=== PATIENT | female | born 1955 | race Caucasian/White ===

== ENCOUNTER 2021-12-18 00:37 | Inpatient (IN) ==
--- NOTE | 2021-12-18 01:01 | Emergency Department Note ---
History of Present Illness General Chief complaint: Shortness of Breath/Dyspnea Stated complaint: sOB Time Seen by Provider: 12/18/21 00:49 History of Present Illness 66-year-old female presents emergency department with a 1-1/2-week history of shortness of breath some dyspnea on exertion. Patient denies cough cold congestion. Patient denies fever. Patient is a very poor historian as to her shortness of breath. Patient denies any substernal chest pain patient states leg swelling that has not worsened. Patient denies calf pain. Patient was seen at a clinic this evening reportedly had a pulse ox of 91% and had a bio fire test that was negative for all viral infections Home Medications Medication Instructions Recorded Confirmed Type CHOLECALCIFEROL (VITAMIN D3) 1 cap PO DAILY 30 Days #30 cap 10/26/15 Rx Cyanocobalamin 1,000 mcg IM UD #1 10/26/15 Rx ERGOCALCIFEROL (VITAMIN D 26529 1 cap PO WK 28 Days #4 cap 02/15/16 History UNIT) ENOXAPARIN (LOVENOX) 129 mg SUBCUT BID@06,18 4 Days #8 02/17/16 Rx vial Warfarin Sod (Coumadin) 10 mg PO DAILY@16 7 Days #14 tab 02/17/16 Rx Allergies Allergy/AdvReac Type Severity Reaction Status Date / Time No Known Allergies Allergy Unverified 10/21/15 08:39 Past Med/Surg History Social History Smoking Status: Never smoker Feels Safe at Home: Yes Review of Systems A total of 10 systems reviewed and were otherwise negative Ear, Nose, Mouth, Throat: no ear pain Respiratory: + dyspnea Cardiovascular: no chest pain Physical Exam Vital Signs Vital Signs - 24 hr 12/18/21 00:43 12/18/21 01:34 12/18/21 01:40 Temperature 36.7 C Temperature Source Temporal Artery Scan Pulse Rate 79 Respiratory Rate 22 Blood Pressure 145/82 H Blood Pressure Mean 103 Pulse Oximetry 91 Oxygen Delivery Method Room Air Room Air Nasal Cannula Oxygen Flow Rate 2 Sepsis Recent Fever Within 48 Hours Yes Sepsis New/Unexplained Change in Mental Status No Sepsis Action Taken by Nursing No Action Required 12/18/21 01:42 Temperature Temperature Source Pulse Rate Respiratory Rate Blood Pressure Blood Pressure Mean Pulse Oximetry 92 Oxygen Delivery Method Nasal Cannula Oxygen Flow Rate 2 Sepsis Recent Fever Within 48 Hours Sepsis New/Unexplained Change in Mental Status Sepsis Action Taken by Nursing VITAL SIGNS - Vital signs and nursing notes were reviewed. GENERAL - no acute distress. Communicates well with provider and answers questions appropriately. SKIN - Without rashes. HEAD - NC/AT. EYES - PERRL with EOMI bilaterally. Sclera anicteric. Palpebral conjunctiva pink and moist with no injection noted. EARS - No deformities of external structures noted on gross examination bilaterally. NOSE - Midline and without cyanosis. No epistaxis or purulent drainage noted. Septum midline without deviation or septal hematoma noted. MOUTH/OROPHARYNX - Without perioral cyanosis. Buccal mucosa pink and moist NECK - Neck with FROM. Supple to palpation. LUNGS - Chest wall symmetric without accessory muscle use, intercostals retractions, or central cyanosis. Normal vesicular breath sounds CTA B/L. No wheezes, rales, or rhonchi appreciated. CARDIAC - RRR with S1/S2. No murmur, rubs, or gallops appreciated. ABDOMEN - Abdominal contour soft without pulsations or visible masses. BS normoactive all four quadrants. No tenderness, palpable masses, hepatosplenomegaly, or ascites noted. EXTREMITIES - No clubbing or peripheral cyanosis. Bilateral lower extremity edema nontender calves; NEUROLOGIC - Cranial nerves II through XII grossly intact. PSYCH - A&Ox3 and cooperates fully with examiner. Pt is very pleasant and int eracts well with examiner. Course Reevaluation(s) Reevaluation #1: Patient is resting in no distress was started on 2 L of oxygen she is not in any respiratory distress at this time. Patient was started on IV Rocephin and Zithromax for suspected right lower lobe pneumonia. Patient is COVID-negative. The case was discussed with the [facility] hospitalist for admission Time: 03:12 Administered Medications Azithromycin 500 mg/ Dextrose 255 mls @ 125 mls/hr IV ONE ONE Stop: 12/18/21 04:11 Last Admin: 12/18/21 03:00 Dose: 125 mls/hr Documented by: [id number] Discontinued Medications Fentanyl Citrate (Fentanyl Citrate 100 Mcg/2 Ml Vial) 25 mcg IV NOW STA Stop: 12/18/21 02:08 Last Admin: 12/18/21 02:21 Dose: 25 mcg Documented by: [id number] Ceftriaxone Sodium (Rocephin) 1,000 mg in 50 mls @ 100 mls/hr IV NOW STA Stop: 12/18/21 02:38 Last Infusion: 12/18/21 03:00 Dose: 0 mls/hr Documented by: [id number] Admin: 12/18/21 02:41 Dose: 100 mls/hr Documented by: [id number] Medical Decision Making Medical Records Attestation: I reviewed the patient's medical records. Home Medications Current Medication List: was personally reviewed by me Laboratory Data Attestation: I reviewed the patient's lab results. Result diagrams: 12/18/21 01:45 12/18/21 01:45 Lab Results 12/18/21 12/18/21 12/18/21 Range/Units 01:45 01:45 01:45 WBC 4.99 (4.8-10.8) K/uL RBC 4.46 (4.2-5.4) M/uL Hgb 13.7 (12.0-16.0) g/dL Hct 40.1 (37-47) % MCV 89.9 (80-100) fL MCH 30.7 (25-34) pg MCHC 34.2 (32-36) g/dL RDW Std Deviation 43.5 (36.4-46.3) fL RDW Coeff of Major 13.1 (11.5-14.5) % Plt Count 60 L (130-400) K/uL MPV 13.1 H (7.4-10.4) fL Immature Gran % (Auto) 0.0 % Neut % (Auto) 80.8 % Lymph % (Auto) 12.2 % [place] % (Auto) 6.4 % Eos % (Auto) 0.4 % Baso % (Auto) 0.2 % Neut # (Auto) 4.03 (1.4-6.5) K/uL Lymph # (Auto) 0.61 L (1.2-3.4) K/uL [place] # (Auto) 0.32 (0.11-0.59) K/uL Eos # (Auto) 0.02 (0-0.5) K/uL Baso # (Auto) 0.01 (0-0.2) K/uL Immature Gran # (Auto) 0.00 (0.00-0.02) K/uL Platelet Estimate Decreased L (Normal) Giant Platelets 1+ PT 12.7 H (9.0-12.0) Seconds INR 1.2 H (0.9-1.1) APTT 31.4 H (21.0-31.0) Seconds PTT Ratio 1.1 Sodium (136-145) mmol/L Potassium Chloride (98-107) mmol/L Carbon Dioxide (21-32) mmol/L Anion Gap (3-11) BUN (6-23) mg/dl Creatinine (0.6-1.2) mg/dl Est Cr Clr Drug Dosing Est GFR ( Amer) ml/min Est GFR (Non-Af Amer) ml/min BUN/Creatinine Ratio (10-20) Glucose (70-99(Fasting)) mg/dl Calcium (8.5-10.1) mg/dl Magnesium (1.7-2.4) mg/dl Total Bilirubin (0.2-1.0) mg/dl AST ALT (7-52) U/L Alkaline Phosphatase (34-104) U/L Troponin I High Sens 14.5 H (0-14) pg/ml B-Natriuretic Peptide (0-100) pg/ml Total Protein (6.0-8.3) gm/dl Albumin (3.4-5.0) gm/dl Globulin (2.5-4.0) gm/dl Albumin/Globulin Ratio (0.9-2) SARS-CoV-2, RNA, NAAT (NEGATIVE) 12/18/21 12/18/21 12/18/21 Range/Units 01:45 01:45 02:42 WBC (4.8-10.8) K/uL RBC (4.2-5.4) M/uL Hgb (12.0-16.0) g/dL Hct (37-47) % MCV (80-100) fL MCH (25-34) pg MCHC (32-36) g/dL RDW Std Deviation (36.4-46.3) fL RDW Coeff of Major (11.5-14.5) % Plt Count (130-400) K/uL MPV (7.4-10.4) fL Immature Gran % (Auto) % Neut % (Auto) % Lymph % (Auto) % [place] % (Auto) % Eos % (Auto) % Baso % (Auto) % Neut # (Auto) (1.4-6.5) K/uL Lymph # (Auto) (1.2-3.4) K/uL [place] # (Auto) (0.11-0.59) K/uL Eos # (Auto) (0-0.5) K/uL Baso # (Auto) (0-0.2) K/uL Immature Gran # (Auto) (0.00-0.02) K/uL Platelet Estimate (Normal) Giant Platelets PT (9.0-12.0) Seconds INR (0.9-1.1) APTT (21.0-31.0) Seconds PTT Ratio Sodium 128 L (136-145) mmol/L Potassium TNP Chloride 93 L (98-107) mmol/L Carbon Dioxide 27 (21-32) mmol/L Anion Gap 8 (3-11) BUN 10 (6-23) mg/dl Creatinine 0.76 (0.6-1.2) mg/dl Est Cr Clr Drug Dosing Not Reportable Est GFR ( Amer) 93.4 ml/min Est GFR (Non-Af Amer) 80.6 ml/min BUN/Creatinine Ratio 13.2 (10-20) Glucose 136 H (70-99(Fasting)) mg/dl Calcium 8.4 L (8.5-10.1) mg/dl Magnesium 1.8 (1.7-2.4) mg/dl Total Bilirubin 0.7 (0.2-1.0) mg/dl AST TNP ALT 56 H (7-52) U/L Alkaline Phosphatase 65 (34-104) U/L Troponin I High Sens (0-14) pg/ml B-Natriuretic Peptide 147 H (0-100) pg/ml Total Protein 6.8 (6.0-8.3) gm/dl Albumin 3.6 (3.4-5.0) gm/dl Globulin 3.2 (2.5-4.0) gm/dl Albumin/Globulin Ratio 1.1 (0.9-2) SARS-CoV-2, RNA, NAAT NEGATIVE (NEGATIVE) Imaging Data Attestation: I personally reviewed and interpreted this imaging study as follows: My Impression: Chest x-ray interpreted by me as right lower lobe infiltrate is present ECG Data Attestation: I personally reviewed and interpreted this ECG as follows: Additional Comments: EKG interpreted by me atrial fibrillation rate of 78, no obvious ST segment elevation or depression, normal axis MDM Narrative Medical decision making differential diagnosis pneumonia, upper respiratory tract infection, CHF, anemia, cardiac event. Plan is to check labs chest x-ray Impression & Plan Hypoxia, Pneumonia Discharge Plan Visit Data Chief Complaint: Shortness of Breath/Dyspnea Stated Complaint: sOB ED Provider: Noel Hoang Discharge Problem: Hypoxia, Pneumonia Patient Disposition: Being Evaluated by Hospitalist Forms Stand Alone Forms: My [facility] Prescriptions Prescriptions: No Action CHOLECALCIFEROL (VITAMIN D3) 2,000 UNIT capsule 1 cap PO DAILY 30 Days Qty: 30 RF: 3 Cyanocobalamin 1,000 MCG/ML INJECTION 1,000 mcg IM UD Qty: 1 RF: 0 ERGOCALCIFEROL (VITAMIN D 42262 UNIT) 50,000 UNIT capsule 1 cap PO WK 28 Days Qty: 4 RF: 5 ENOXAPARIN (LOVENOX) 150 MG/1 ML INJECTION 129 mg subcut BID@06,18 4 Days Qty: 8 RF: 0 Warfarin Sod (Coumadin) 10 MG tablet 10 mg PO DAILY@16 7 Days Qty: 14 RF: 0 Referrals Referrals: Lan Wheeler MD [Primary Care Provider] -
[2021-12-18] MEDS ORDERED: fentaNYL citrate 100 MCG/2 ML VIAL IV STA (02:07)
[2021-12-18] MEDS ORDERED: AZITHROMYCIN 500 MG in DEXTROSE 5% 250 ML IV ONE (02:09)
[2021-12-18] MEDS ORDERED: cefTRIAXone SODIUM 1,000 MG/50 ML BAG IV STA (02:09)
[2021-12-18 02:16] LABS: INR 1.2 (0.9-1.1); Partial Thromboplastin Ratio 1.1; Partial Thromboplastin Time 31.4 Seconds (21.0-31.0); Prothrombin Time 12.7 Seconds (9.0-12.0)
[2021-12-18 02:36] LABS: Alanine Aminotransferase 56 U/L (7-52); Albumin Globulin Ratio 1.1 (0.9-2); Albumin Level 3.6 gm/dl (3.4-5.0); Alkaline Phosphatase 65 U/L (34-104); Anion Gap 8 (3-11); BUN Creatinine Ratio 13.2 (10-20); Bilirubin,Total 0.7 mg/dl (0.2-1.0); Blood Urea Nitrogen 10 mg/dl (6-23); Calcium 8.4 mg/dl (8.5-10.1); Carbon Dioxide 27 mmol/L (21-32); Chloride 93 mmol/L (98-107); Est GFR (African American) 93.4 ml/min; Est GFR (Non-African American) 80.6 ml/min; Globulin 3.2 gm/dl (2.5-4.0); Glucose 136 mg/dl (70-99(Fasting)); Magnesium 1.8 mg/dl (1.7-2.4); Sodium 128 mmol/L (136-145); Total Protein 6.8 gm/dl (6.0-8.3)
[2021-12-18 02:44] LABS: Basophils # (auto) 0.01 K/uL (0-0.2); Basophils % (auto) 0.2 %; Eosinophils # (auto) 0.02 K/uL (0-0.5); Eosinophils % (auto) 0.4 %; Giant Platelets 1+; Hematocrit (blood only) 40.1 % (37-47); Hemoglobin 13.7 g/dL (12.0-16.0); Lymphocytes # (auto) 0.61 K/uL (1.2-3.4); Lymphocytes % (auto) 12.2 %; Mean Corpuscular Hemoglobin 30.7 pg (25-34); Mean Corpuscular Hgb Conc 34.2 g/dL (32-36); Mean Corpuscular Volume 89.9 fL (80-100); Mean Platelet Volume 13.1 fL (7.4-10.4); Monocytes # (auto) 0.32 K/uL (0.11-0.59); Monocytes % (auto) 6.4 %; Neutrophils # (auto) 4.03 K/uL (1.4-6.5); Neutrophils % (auto) 80.8 %; Platelet Count 60 K/uL (130-400); Platelet Estimate Decreased (Normal); RDW Coefficient of Variation 13.1 % (11.5-14.5); RDW Standard Deviation 43.5 fL (36.4-46.3); Red Blood Count 4.46 M/uL (4.2-5.4); White Blood Count 4.99 K/uL (4.8-10.8)
--- NOTE | 2021-12-18 03:23 | History & Physical Report ---
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 RLL Pneumonia; Hypoxia Weakness x several weeks with cough/SOB, RLL crackles on exam, and RLL Pneumonia per CXR. No sepsis. - ordered lactate, Procal, CRP, MRSA nares - ordered urine legionella, given comorbid diarrhea - started on CTX 1g IV and Azithromycin 500mg IV in the ED - will continue both, daily - follow blood cx and adjust abx if necessary - supplemental O2 via NC as necessary to maintain SpO2 90% - wean as tolerated - Mucinex 1200mg PO BID - trend CBC tomorrow AM Atrial Fibrillation New diagnosis, no RVR. CHADS-VASc score of 2. CHADS-VASc score of 4 (previous VTE). - admit to med/tele and repeat EKG later this AM - discussed anti-coagulation and chronic beta-blockade with the patient - will defer to day team for further discussions as the patient would like to think about it more Hyponatremia Na 128. Suspect hypotonic hypovolemic hyponatremia due to diarrhea as well as decreased fluid intake. - ordered urine/serum osmolality and urinary sodium - will give 1L NSS bolus now and re-check BMP at 06:30 Thrombocytopenia Plts 60. Unclear etiology at this time. No s/s active bleeding. - will get hepatitis panel (given slightly elevated ALT) as well as peripheral smear - trend tomorrow AM H/o VTE/PE In 2015. Was on anti-coagulation but stopped (reportedly per PCP) several years ago. 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 Patient has had [id number] PO intake for several days. Also patient reports watery diarrhea (non-bloody), 2-3 episodes per day, for the last several weeks. Patient was reportedly seen in a clinic yesterday and had SpO2 of 91% and had tested nevarez- negative for viral infections via Bio Fire testing. Patient denies fever/chills, chest pain, N/V, abdominal pain In the ED the patient was hypoxic to high 80s and required 2L/min via NC to maintain SpO2 92%. Labs significant for plts 60 (no previous) and lymphopenia 0.61. Na 128, Cl 93. AST 56. hsTroponin negative. BNP 147. PT 12.7/INR 12.7. COVID-19 negative. CXR showing RLL opacity suggestive of pneumonia. In the ED patient was given CTX 1g IV and Azithromycin 500mg IV. Was also given Fentanyl 25mcg IV x1. Blood cx were drawn before abx administered. Allergies Allergy/AdvReac Type Severity Reaction Status Date / Time No Known Allergies Allergy Unverified 10/21/15 08:39 Home Medications Medication Instructions Recorded Confirmed Type CHOLECALCIFEROL (VITAMIN D3) 1 cap PO DAILY 30 Days #30 cap 10/26/15 Rx Cyanocobalamin 1,000 mcg IM UD #1 10/26/15 Rx ERGOCALCIFEROL (VITAMIN D 05124 1 cap PO WK 28 Days #4 cap 02/15/16 History UNIT) ENOXAPARIN (LOVENOX) 129 mg SUBCUT BID@06,18 4 Days #8 02/17/16 Rx vial Warfarin Sod (Coumadin) 10 mg PO DAILY@16 7 Days #14 tab 02/17/16 Rx Past Med/Surg History Medical History (Updated 12/18/21 @ 03:58 by Alton Davis MD) History of pulmonary embolism Social History Smoking Status: Never smoker Feels Safe at Home: Yes Review of Systems Review of Systems: All systems reviewed & are unremarkable except as noted in HPI & below Physical Exam Physical Exam: General: A&Ox3. NAD. Cooperative. HEENT: Atraumatic, normocephalic. Pulm: Right mid- and basilar crackles. Symmetrical chest rise. No increase work of breathing. No respiratory distress. Cardiac: irregularly irregular rhythm, regular rate, -mrg. Radial pulses intact and symmetrical. No LE edema. Abdominal: soft, non-tender, non-distended, BS x 4 Skin: warm, dry, no rash Results & Data Results & Data ([facility]) Vital Signs (Past 12 Hours) Vital Signs Temp Pulse Resp BP Pulse Ox 12/18/21 01:42 92 12/18/21 00:43 36.7 C 79 22 145/82 H 91 Laboratory Results Laboratory Results WBC 4.99 K/uL (4.8-10.8) 12/18/21 01:45 RBC 4.46 M/uL (4.2-5.4) 12/18/21 01:45 Hgb 13.7 g/dL (12.0-16.0) 12/18/21 01:45 Hct 40.1 % (37-47) 12/18/21 01:45 MCV 89.9 fL (80-100) 12/18/21 01:45 MCH 30.7 pg (25-34) 12/18/21 01:45 MCHC 34.2 g/dL (32-36) 12/18/21 01:45 RDW Std Deviation 43.5 fL (36.4-46.3) 12/18/21 01:45 RDW Coeff of Major 13.1 % (11.5-14.5) 12/18/21 01:45 Plt Count 60 K/uL (130-400) L 12/18/21 01:45 MPV 13.1 fL (7.4-10.4) H 12/18/21 01:45 Immature Gran % (Auto) 0.0 % 12/18/21 01:45 Neut % (Auto) 80.8 % 12/18/21 01:45 Lymph % (Auto) 12.2 % 12/18/21 01:45 [place] % (Auto) 6.4 % 12/18/21 01:45 Eos % (Auto) 0.4 % 12/18/21 01:45 Baso % (Auto) 0.2 % 12/18/21 01:45 Neut # (Auto) 4.03 K/uL (1.4-6.5) 12/18/21 01:45 Lymph # (Auto) 0.61 K/uL (1.2-3.4) L 12/18/21 01:45 [place] # (Auto) 0.32 K/uL (0.11-0.59) 12/18/21 01:45 Eos # (Auto) 0.02 K/uL (0-0.5) 12/18/21 01:45 Baso # (Auto) 0.01 K/uL (0-0.2) 12/18/21 01:45 Immature Gran # (Auto) 0.00 K/uL (0.00-0.02) 12/18/21 01:45 Platelet Estimate Decreased (Normal) L 12/18/21 01:45 Giant Platelets 1+ 12/18/21 01:45 PT 12.7 Seconds (9.0-12.0) H 12/18/21 01:45 INR 1.2 (0.9-1.1) H 12/18/21 01:45 APTT 31.4 Seconds (21.0-31.0) H 12/18/21 01:45 PTT Ratio 1.1 12/18/21 01:45 Sodium 128 mmol/L (136-145) L 12/18/21 01:45 Potassium TNP 12/18/21 01:45 Chloride 93 mmol/L (98-107) L 12/18/21 01:45 Carbon Dioxide 27 mmol/L (21-32) 12/18/21 01:45 Anion Gap 8 (3-11) 12/18/21 01:45 BUN 10 mg/dl (6-23) 12/18/21 01:45 Creatinine 0.76 mg/dl (0.6-1.2) 12/18/21 01:45 Est Cr Clr Drug Dosing Not Reportable 12/18/21 01:45 Est GFR ( Amer) 93.4 ml/min 12/18/21 01:45 Est GFR (Non-Af Amer) 80.6 ml/min 12/18/21 01:45 BUN/Creatinine Ratio 13.2 (10-20) 12/18/21 01:45 Glucose 136 mg/dl (70-99(Fasting)) H 12/18/21 01:45 Calcium 8.4 mg/dl (8.5-10.1) L 12/18/21 01:45 Magnesium 1.8 mg/dl (1.7-2.4) 12/18/21 01:45 Total Bilirubin 0.7 mg/dl (0.2-1.0) 12/18/21 01:45 AST TNP 12/18/21 01:45 ALT 56 U/L (7-52) H 12/18/21 01:45 Alkaline Phosphatase 65 U/L (34-104) 12/18/21 01:45 Troponin I High Sens 14.5 pg/ml (0-14) H 12/18/21 01:45 B-Natriuretic Peptide 147 pg/ml (0-100) H 12/18/21 01:45 Total Protein 6.8 gm/dl (6.0-8.3) 12/18/21 01:45 Albumin 3.6 gm/dl (3.4-5.0) 12/18/21 01:45 Globulin 3.2 gm/dl (2.5-4.0) 12/18/21 01:45 Albumin/Globulin Ratio 1.1 (0.9-2) 12/18/21 01:45 Urine Color Yellow 12/18/21 04:09 Urine Appearance Clear (Clear) 12/18/21 04:09 Urine pH 6.5 (4.5-7.5) 12/18/21 04:09 Ur Specific [place] 1.010 (1.000-1.030) 12/18/21 04:09 Urine Protein Negative (Negative) 12/18/21 04:09 Urine Glucose (UA) Negative (Negative) 12/18/21 04:09 Urine Ketones Negative (Negative) 12/18/21 04:09 Urine Blood Negative (Negative) 12/18/21 04:09 Urine Nitrite Negative (Negative) 12/18/21 04:09 Urine Bilirubin Negative (Negative) 12/18/21 04:09 Urine Urobilinogen Negative (Negative) 12/18/21 04:09 Ur Leukocyte Esterase Negative (Negative) 12/18/21 04:09 SARS-CoV-2, RNA, NAAT NEGATIVE (NEGATIVE) 12/18/21 02:42 Diagnostic Findings CXR - RLL opacity Supervising Physician Co-Signing Physician Notes Patient seen and examined, chart reviewed, case discussed with Dr. Davis and I agree with the assessment and plan as documented above. In brief, patient is a 66yo female presenting with RLL PNA. Mildly hypoxic in the ER requiring supplemental O2. Also with diarrhea, nausea On exam she is ill in appearance, answering questions appropriately SKin - intact HEENT - MMM, Neck supple Heart - +S1/S2, irregularly irregular Lungs -+crackles in right base Abd - +BS, soft NT/ND Ext - No edema Labs and images reviewed Assessment/Plan - 66yo female with RLL CAP, hypoxic in ER requiring supplemental O2 -Azithromycin + Ceftriaxone -O2 -Mucinex PRN -Remainder as above Resident Activity Tracking Resident Involvement: Resident Care Provided Care Provided: Adult Hospital Medicine (1) Pneumonia Laterality: right Lung location: lower lobe of lung Pneumonia type: due to unspecified organism Qualified Code(s): J18.9 - Pneumonia, unspecified organism
[2021-12-18] MEDS ORDERED: ENOXAPARIN INJ 40 MG/0.4 ML SYR SQ SCH (03:48)
--- NOTE | 2021-12-18 04:24 | Billing Data ---
Date of Service December 18, 2021 Coding Level of Care Code 23389 Initial Inpt Care Lvl 2
[2021-12-18 04:26] LABS: Appearance Urine Clear (Clear); Bilirubin Urine Negative (Negative); Blood Urine Negative (Negative); Color Urine Yellow; Glucose Urine UA Negative (Negative); Ketones Urine Negative (Negative); Leukocyte Esterase Urine Negative (Negative); Nitrite Urine Negative (Negative); Protein Urine Negative (Negative); Urobilinogen Urine Negative (Negative); pH Urine 6.5 (4.5-7.5)
[2021-12-18 04:35] LABS: C Reactive Protein 16.05 mg/dl (0-0.5); Potassium 3.4 mmol/L (3.5-5.1)
[2021-12-18] MEDS ORDERED: POTASSIUM CHLORIDE CRTAB 20 MEQ TABCR PO STA (04:42)
[2021-12-18] MEDS ORDERED: ACETAMINOPHEN 325 MG TAB PO PRN (04:48)
[2021-12-18] MEDS ORDERED: SODIUM CHLORIDE 0.9% 1000ML 1,000 ML IV ONE (04:48)
[2021-12-18 07:52] LABS: Estimated Average Glucose 134 mg/dl; Hemoglobin A1C 6.3 % (4.5-5.6)
[2021-12-18 07:59] LABS: BUN Creatinine Ratio 12.1 (10-20); Creatinine Clr Calc Pharmacy 115.8 ml/min; Est GFR (African American) 105.2 ml/min; Est GFR (Non-African American) 90.8 ml/min; Potassium 3.5 mmol/L (3.5-5.1)
--- NOTE | 2021-12-18 08:20 | XRay Report ---
XR chest 1V portable HISTORY: Dyspnea COMPARISON: Chest 10/21/2015. FINDINGS: No pneumothorax. The heart is enlarged. There is mild interstitial thickening, unchanged. T here is a new right lower lobe airspace opacity. There are low lung volumes with mild elevation the r ight hemidiaphragm, unchanged. IMPRESSION: A new right lower lobe airspace opacity likely representing a pneumonia. Recommend follow-up to ensur e resolution. ACT 112: Negative or not required by law. Electronically signed by: Rodrigue Watts M.D. 12/18/2021 8:18 AM
[2021-12-18] MEDS: guaiFENesin 600 MG TABCR PO SCH ×2 (08:23→22:39)
--- NOTE | 2021-12-18 08:38 | Electrocardiogram Report ---
Test Reason : Blood Pressure : / mmHG Vent. Rate : 074 BPM Atrial Rate : 063 BPM P-R Int : 000 ms QRS Dur : 104 ms QT Int : 384 ms P-R-T Axes : 000 032 023 degrees QTc Int : 426 ms Atrial fibrillation Abnormal ECG When compared with ECG of 15-FEB-2016 18:24, Atrial fibrillation has replaced Sinus rhythm Confirmed by Jean Dhaliwal ([id number]) on 12/18/2021 8:38:48 AM Referred By: REFERRED SELF Confirmed By:Jean Dhaliwal
--- NOTE | 2021-12-18 12:24 | Hospitalist Progress Note ---
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 Dry Cough; RLL Airspace Opacity on CXR; Hypoxia Weakness x several weeks with cough/SOB, RLL crackles on exam, and RLL airspace opacity per CXR. No sepsis. - lactate, procal normal, CRP slightly elevated at 16.05 - MRSA nares negative - ordered urine legionella, given comorbid diarrhea and hyponatremia, pending - clinical presentation ddx for CAP vs legionella vs fluid overload however does not have traditional exposures from infected water source for legionella - started on CTX 1g IV and Azithromycin 500mg IV in the ED - will continue and reassess tomorrow. Currently on day 1 of abx. - follow blood cx and adjust abx if necessary - supplemental O2 via NC as necessary to maintain SpO2 90% - wean as tolerated. Currently on 3L O2 - Mucinex 1200mg PO BID - ECHO today, EF 55-60% new mild mitral and tricuspid regurg and mild pulmonary HTN compared to echo in 2016. LV normal, RV moderately dilated with RV systolic pressure of 30-40mmHg - possible fluid overload with SOB and pitting edema as well as dilated RV - given 1 dose of IV furosemide 40mg - Appreciate cardiology consult Atrial Fibrillation New diagnosis, no RVR. CHADS-VASc score of 2. CHADS-VASc score of 4 (previous VTE). - Admitted to med/tele, still in adriane today - discussed anti-coagulation and chronic beta-blockade with the patient - hold full anti-coagulation until fecal occult blood test results. Not tachycardic today, may not need beta clement or rate control. Patient agreeable to anti- coagulation. - TSH 4.5, T4 0.96, not likely contributing to afib Hyponatremia Na 129. Suspect hypotonic hypovolemic hyponatremia due to diarrhea as well as decreased fluid intake. - ordered urine/serum osmolality and urinary sodium - given 1L NSS bolus in ED, no IV fluids currently Diarrhea - Patient describes 3-4 days of uncontrollable diarrhea that is black in color and foul smelling. No red blood - Ordered fecal occult blood test, pending. GI PCR panel pending - Hemodynamically stable with normal hgb, no abdominal pain Thrombocytopenia Plts 60. Unclear etiology at this time. No s/s active bleeding. - hepatitis panel (given slightly elevated ALT) as well as - peripheral smear showed thrombocytopenia, consider ddx anaplasmosis due to subjective fever prior to admission, diarrhea, and slightly elevated LFTs - liver ultrasound today: 1. Prior cholecystectomy, 2. Normal liver, 3. Small right pleural effusion. H/o VTE/PE In 2016. Was on anti-coagulation but stopped (reportedly per PCP) several years ago. FEN/GI: regular diet DVT Prophylaxis: Lovenox Code Status: full code Disposition: med/tele (2) Hypoxia: (3) Atrial fibrillation: (4) Thrombocytopenia: (5) Hyponatremia: (6) Diarrhea: (7) History of pulmonary embolism: Admission and Anticipated Discharge Date Admission Date: December 18, 2021 Supervising Physician Co-Signing Physician Notes Medical Student Supervision Note: I was personally present during medical student patient encounter and independently interviewed and examined the patient and verified the [place] history and physical, reviewed labs and image studies, discussed the case with Jazmin James and agree with the findings and care plan. 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 Noted to be hypoxic and have CXR infiltrate and low platelet count. started on IV abx in ED. Also found to be in A fib - rate controlled. Unclear if presentation sec to fluid overload or pneumonia. JVD +. BNP very slightly elevated, echo with LVH and right sided dysfunction. Will trial a dose of lasix and follow. continue IV abx in the meantime and follow cultures. WBC normal A fib - RC To start full Anticoagulation in am. Low platelet - ? sec to viral illness. follow Mildly elevated transminase - liver US ordered. Morbid obesity - will benefit from formal sleep eval considering echo finding Subjective This morning, patient has SOB at rest, dry cough, lightheadedness, and fatigue. She denies chest pain or abdominal pain. Her daughter Ana was at the bedside and helped clarify history. The patient had an episode of ear pain and headache a few weeks ago and has had SOB, fatigue, and dry cough since that time. 3-4 days ago she started having uncontrollable diarrhea 2 times a day that she describes as black and foul smelling. She also felt feverish with chills. She has had poor PO intake of food and fluids over the last few days. No orthopnea and lower extremity edema is at the patient's baseline. The patient is [place] and does not have an air conditioner and has not been on cruises or hotels recently. No sick contacts or other family or community members that are sick. Water for the house is [place] spring water that is supplied through copper pipes without being stored in a reservoir. The family keeps cows and horses but the patient does not have regular direct contact with the livestock. Review of Systems Ear, Nose, Mouth, Throat: no congestion Respiratory: dry cough and SOB at rest Cardiovascular: Additional Comments: no chest pain or palpitations Gastrointestinal: diarrhea, patient states it is dark and foul smelling Genitourinary: no dysuria Neurologic: no headache Physical Exam Constitutional: no acute distress, obese female Respiratory: increased respiratory effort on 4L O2, clear to auscultation other than slight crackles in right lower lobe Cardiovascular: irregularly irregular rhythm, no murmurs appreciated. 2+ pitting edema bilaterally to knees. Gastrointestinal (Abdomen): active bowel sounds, no pain to palpation Neurologic: Alert and oriented x3 Results & Data Results & Data ([facility]) Vital Signs (Past 12 Hours) Vital Signs Temp Pulse Pulse Resp BP BP Pulse Ox 12/18/21 09:00 145 H 19 145/68 H 96 12/18/21 04:30 73 23 126/73 94 12/18/21 04:00 75 26 H 93 12/18/21 03:30 73 21 94 12/18/21 03:17 72 25 H 127/73 92 12/18/21 03:00 69 20 12/18/21 02:30 69 18 12/18/21 02:00 72 20 12/18/21 01:42 92 12/18/21 01:30 71 22 93 12/18/21 01:11 79 20 12/18/21 00:43 36.7 C 79 22 145/82 H 91 (1) Pneumonia Laterality: right Lung location: lower lobe of lung Pneumonia type: due to unspecified organism Qualified Code(s): J18.9 - Pneumonia, unspecified organism
--- NOTE | 2021-12-18 14:54 | Ultrasound Report ---
ABDOMINAL ULTRASOUND, RIGHT UPPER QUADRANT HISTORY: elevated lfts. COMPARISON: Abdomen and pelvis CT 10/21/2015. FINDINGS: Pancreas: The pancreatic tail is obscured by overlying bowel gas. The remaining portions of the pancr eas are within normal limits. Liver: Unremarkable. Gallbladder: The gallbladder is surgically absent. CBD: 7 mm in diameter. This is within the range of normal limits given the patient's postcholecystect sandra state. Right kidney: No hydronephrosis. Miscellaneous: Small right pleural effusion. IMPRESSION: 1. Prior cholecystectomy. 2. Normal liver. 3. Small right pleural effusion. ACT 112: Negative or not required by law. Electronically signed by: Rodrigue Watts M.D. 12/18/2021 2:52 PM
--- NOTE | 2021-12-18 15:00 | XCELERA ---
[id number]
[2021-12-18] MEDS ORDERED: FUROSEMIDE 40 MG/4 ML VIAL IV ONE (15:13)
--- NOTE | 2021-12-18 15:23 | Electrocardiogram Report ---
Test Reason : Blood Pressure : / mmHG Vent. Rate : 068 BPM Atrial Rate : 029 BPM P-R Int : 000 ms QRS Dur : 102 ms QT Int : 364 ms P-R-T Axes : 000 063 042 degrees QTc Int : 387 ms Poor data quality, interpretation may be adversely affected Atrial fibrillation Abnormal ECG When compared with ECG of 18-DEC-2021 01:09, No significant change Confirmed by Jean Dhaliwal ([id number]) on 12/18/2021 3:23:07 PM Referred By: REFERRED SELF Confirmed By:Jean Dhaliwal
[2021-12-18 16:05] LABS: Thyroid Stimulating Hormone 4.548 uIu/ml (0.300-4.500)
[2021-12-18 16:44] LABS: T4 Free Thyroxine 0.96 ng/dl (0.61-1.60)
[2021-12-19] MEDS: cefTRIAXone SODIUM 2,000 MG in DEXTROSE 5% 50 ML IV SCH (05:40)
[2021-12-19 06:22] LABS: HBSAG NON-REACTIVE (NON-REACTIVE); Hepatitis A Antibody IgM NON-REACTIVE (NON-REACTIVE); Hepatitis B Core Antibody IgM NON-REACTIVE (NON-REACTIVE)
[2021-12-19] MEDS: AZITHROMYCIN 500 MG in DEXTROSE 5% 250 ML IV SCH (06:25)
[2021-12-19] MEDS ORDERED: ENOXAPARIN INJ 40 MG/0.4 ML SYR SQ SCH (06:30)
[2021-12-19 07:56] LABS: Basophils # (auto) 0.01 K/uL (0-0.2); Basophils % (auto) 0.3 %; Eosinophils # (auto) 0.15 K/uL (0-0.5); Eosinophils % (auto) 4.7 %; Hematocrit (blood only) 37.5 % (37-47); Hemoglobin 12.8 g/dL (12.0-16.0); Lymphocytes # (auto) 0.64 K/uL (1.2-3.4); Lymphocytes % (auto) 19.9 %; Mean Corpuscular Hemoglobin 30.9 pg (25-34); Mean Corpuscular Hgb Conc 34.1 g/dL (32-36); Mean Corpuscular Volume 90.6 fL (80-100); Mean Platelet Volume 13.5 fL (7.4-10.4); Monocytes # (auto) 0.23 K/uL (0.11-0.59); Monocytes % (auto) 7.1 %; Neutrophils # (auto) 2.19 K/uL (1.4-6.5); Platelet Count 70 K/uL (130-400); Platelet Estimate Decreased (Normal); RDW Coefficient of Variation 13.3 % (11.5-14.5); RDW Standard Deviation 44.4 fL (36.4-46.3); Red Blood Count 4.14 M/uL (4.2-5.4); White Blood Count 3.22 K/uL (4.8-10.8)
[2021-12-19 08:12] LABS: BUN Creatinine Ratio 16.7 (10-20); Calcium 8.1 mg/dl (8.5-10.1); Creatinine Clr Calc Pharmacy 132.7 ml/min; Est GFR (African American) 108.5 ml/min; Est GFR (Non-African American) 93.7 ml/min; INR 1.1 (0.9-1.1); Magnesium 1.9 mg/dl (1.7-2.4); Potassium 3.7 mmol/L (3.5-5.1); Prothrombin Time 11.7 Seconds (9.0-12.0)
[2021-12-19] MEDS ORDERED: FUROSEMIDE 40 MG/4 ML VIAL IV ONE ×2 (08:51→10:19)
--- NOTE | 2021-12-19 09:11 | XRay Report ---
XR chest 1V portable HISTORY: 66 years-old Female SOB acute shortness of breath COMPARISON: Chest radiograph 12/18/2021, CTA chest 02/15/2016 TECHNIQUE: Portable AP view of the chest FINDINGS: The cardiac silhouette is enlarged. Mild right hemidiaphragmatic elevation. Pulmonary vascular conges tion with interstitial coarsening. Persistent right lung base airspace opacities which appear similar to mildly improved. Bones appear grossly intact. IMPRESSION: 1. Cardiomegaly with pulmonary vascular congestion. 2. Right lung base airspace opacities suspicious for pneumonia appear similar to mildly improved from yesterday's exam. ACT 112: Negative or not required by law. The above report was generated using voice recognition software. It may contain grammatical, syntax o r spelling errors. Electronically signed by: Amor Caldwell M.D. 12/19/2021 9:10 AM
--- NOTE | 2021-12-19 09:31 | Hospitalist Progress Note ---
Date of Service December 19, 2021 Assessment & Plan (1) Hypoxia: Plan: Saray Pena is a 66yo female with PMHx significant for h/o VTE (in 2016, not on Lovenox for several years) who presented to [facility] ED on 12/18 for shortness of breath, cough, diarrhea and generalized weakness. Dry Cough; RLL Airspace Opacity on CXR; Hypoxia Weakness x several weeks with cough/SOB, RLL crackles on exam, and RLL airspace opacity per CXR. No sepsis. - lactate, procal normal, CRP slightly elevated at 16.05 - MRSA nares negative - ordered urine legionella, given comorbid diarrhea and hyponatremia, pending - clinical presentation ddx for CAP vs legionella vs fluid overload however does not have traditional exposures from infected water source for legionella - started on CTX 1g IV and Azithromycin 500mg IV in the ED - will continue and reassess tomorrow after 48 hours of treatment. Currently on day 2 of abx. - no prelim growth on blood cultures today - follow symptomatic progress with diuresis, repeat chest xray and procalc itonin tomorrow morning - consider d/c abx tomorrow morning if SOB and cough more likely fluid overload vs PNA - supplemental O2 via NC as necessary to maintain SpO2 90% - wean as tolerated. Currently on 3L O2 - Mucinex 1200mg PO BID - ECHO notable for EF 55-60% new mild mitral and tricuspid regurg and mild pulmonary HTN compared to echo in 2016. LV normal, RV moderately dilated with RV systolic pressure of 30-40mmHg - possible fluid overload with SOB and pitting edema as well as dilated RV, 1 dose 40mg lasix IV given 12/18 - Cardiology consult: recommend care home anticoagulation with xarelto 20mg PO. Ordered KCl 20mg PO and 60 mg IV lasix total this morning Atrial Fibrillation New diagnosis, no RVR. CHADS-VASc score of 2. CHADS-VASc score of 4 (previous VTE). - Admitted to med/tele, still in afib today - discussed anti-coagulation and chronic beta-blockade with the patient - Not tachycardic today, may not need beta clement or rate control - TSH 4.5, T4 0.96, not likely contributing to afib - fecal occult blood negative, start Xarelto 20mg PO daily for afib anticoagulation Hyponatremia Na 129 -> 134 today. Suspect hypotonic hypovolemic hyponatremia due to diarrhea as well as decreased fluid intake. - ordered urine/serum osmolality and urinary sodium - given 1L NSS bolus in ED, no IV fluids currently other than abx Diarrhea - Patient describes 3-4 days of uncontrollable diarrhea that is black in color and foul smelling. No red blood. BM this morning light brown per nursing. - Fecal occult blood test negative. GI PCR panel pending - Hemodynamically stable with normal hgb, no abdominal pain - Hgb 13.7 on admit -> 12.8, Hct 40.1 ->37.5 likely dilutional due to net 1700+ fluids since admission with IV abx Thrombocytopenia Plts 60 -> 70 today. Unclear etiology at this time, possibly viral infection. No s/s active bleeding. - hepatitis panel negative - peripheral smear showed thrombocytopenia, consider ddx anaplasmosis due to subjective fever prior to admission, diarrhea, and slightly elevated LFTs - liver ultrasound 12/18: 1. Prior cholecystectomy, 2. Normal liver, 3. Small right pleural effusion. 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 Was on anti-coagulation but stopped (reportedly per PCP) several years ago. FEN/GI: regular diet DVT Prophylaxis: D/c'd lovenox last night, switch to xarelto 20mg PO Code Status: full code Disposition: med/tele (2) Atrial fibrillation: (3) Thrombocytopenia: (4) Hyponatremia: (5) Diarrhea: (6) History of pulmonary embolism: Admission and Anticipated Discharge Date Admission Date: December 18, 2021 Supervising Physician Co-Signing Physician Notes Medical Student Supervision Note: I was personally present during medical student patient encounter and independently interviewed and examined the patient and verified the [place] history and physical, reviewed labs and image studies, discussed the case with Jazmin James and agree with the findings and care plan. 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 Noted to be hypoxic and have CXR infiltrate and low platelet count. started on IV abx in ED. Also found to be in A fib - rate controlled. Acute hypoxic resp failure sec to fluid overload O2 support as needed. Now on room air Acute on chronic HFpEF Positive response to diuresis so far. 60mgs lasix this am. follow bmp. Diarrhea from Enterotoxic E coli symptoms improved. Concern of pneumonia. Less likely continue IV abx till am and if cultures neg in 48hrs - will d/c abx. A fib - RC Anticoagulation started. Low platelet - likely sec to acute illness. count improving. follow Morbid obesity - will benefit from formal sleep eval considering echo finding Subjective This morning patient is still having SOB and cough. She states that she felt much better with less SOB after the dose of furosemide yesterday and feels that her SOB improves when walking or sitting up vs laying down. States that she have increased urination with the furosemide as well. No fever, chills, abdominal pain, or dysuria today. She had a bowel movement this morning. Some lightheadedness while walking to the bathroom and sitting up, but patient forgot to to put her oxygen on during this episode. No falls or syncope. Review of Systems Constitutional: no fever or chills Respiratory: SOB, mostly dry cough with some mucus Cardiovascular: Additional Comments: no chest pain or palpitations Gastrointestinal: no abdominal pain, no diarrhea Genitourinary: no dysuria Neurologic: no headache Physical Exam Constitutional: laying in bed comfortably, no acute distress Respiratory: normal respiratory effort on 3L oxygen, able to speak short sentences without stopping for breath, lungs clear to auscultation bilaterally Cardiovascular: irregularly irregular heart beat no murmurs of gallops appreciated, 2+ pitting edema to mid agn Gastrointestinal (Abdomen): no pain to palpation, active bowel sounds Neurologic: alert and oriented x3 Results & Data Results & Data ([facility]) Vital Signs (Past 12 Hours) Vital Signs Temp Pulse Pulse Resp BP Pulse Ox 12/19/21 06:40 37.0 C 66 18 114/71 91 12/19/21 03:43 36.8 C 67 18 125/76 90 12/18/21 23:24 66 12/18/21 23:07 36.8 C 66 18 119/69 94
--- NOTE | 2021-12-19 09:41 | Cardiology Consultation ---
Date of Consultation December 19, 2021 Assessment & Plan (1) Atrial fibrillation with controlled ventricular rate: (2) Pulmonary hypertension: (3) Hypervolemia: Mrs. Pena is a 66 year old female with a history of Obesity, Prior DVT/PE 2015 (failed standard anticoagulation, converted to Lovenox), Autoimmune Hemolytic Anemia, Pulmonary Hypertension, Mild Concentric LVH, Mild MR, Mild TR, Moderately Dilated RV with Normal RV Systolic Function,Moderate Left Atrial Dilation, Mild to Moderate Right Atrial Dilation, Hyponatremia, and Snoring (without a diagnosis of sleep apnea) who was admitted on 12/18/21 after presenting with Generalized Weakness, Malaise, Fever, Cough, SOB, Poor Appetite x several weeks, and with Newly Diagnosed and Rate Controlled A-Fib. On admission, patient was Hypokalemic, Hyponatremic, and Hypoxic with a RLL infiltrate on her CXR -- her presentation was consistent with an Acute RLL Pneumonia. Patient treated with IVF, supplemental O2, IV Rocephin 2 g daily, and IV Azithromycin. She was also noted to be in Rate Controlled Atrial Fibrillation with HR's in the 60's and 70's. Her potassium was supplemented and she received 1 dose of IV Lasix 40 mg. She was also started on Lovenox, but this has been discontinued (probably secondary to thrombocytopenia -- platelet count has ranged between 57987 and 28953/uL). Her BNP is mildly elevated at 147 pg/mL and despite her single dose of IV Lasix she has a positive fluid balance of +1730 mL since being admitted -- with elevated liver enzymes she likely has some passive hepatic congestion. CXR today is consistent with RLL infiltrate and mild pulmonary vascular congestion. One hs Troponin I was drawn and was minimally elevated at 14.5 pg/mL -- likely demand ischemia secondary to hypoxia and acute illness. Patient feels much better than she did at the time of admission. Her SOB is improved and her cough is less prominent following IV Lasix and the institution of IV antibiotics. She has not had any further fevers and her weakness, malaise have improved. She does not lie flat to sleep due to difficulty catching her breath during this illness -- patient appears to be hypervolemic on physical examination and on today's CXR. Recommend the followin. Her HR appears to be well controlled in atrial fibrillation without a negative chronotropic medication, so she may have some underlying conduction disease. 2. 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 Recommend Xa relto 20 mg daily to reduce the risk of thromboembolic phenomena associated with A-Fib. 3. We discussed what A-Fib is, the natural history of atrial dysrhythmias, and various management strategies. 4. We discussed the results of her Echocardiogram, moderately dilated RV, pulmonary hypertension. 5. Patient appears to be in a hypothyroid state -- monitor HR response as hypothyroidism is corrected. 6. Give IV Lasix 60 mg now x 1 dose. 7. Give KCl 20 mEq po now x 1 dose. 8. Monitor I&O's and daily body weights. 9. With the presence of A-Fib, obesity, and snoring may want to consider a sleep study. Please arrange for follow-up with Dr. Rico in our [facility] office at the time of discharge. (4) History of pulmonary embolism: History of DVT/PE in 2016 while on standard anticoagulation. Required Lovenox for a period of time. -- Likely contributed to RV dilation and pulmonary hypertension. 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 -- Platelet count has ranged between 60 to 70 K/uL. -- Monitor daily labs. (6) Pneumonia: -- Continue IV Rocephin 2 grams daily. -- Continue IV Azithromycin 250 mg daily. History of Present Illness Reason for Consultation: -- Newly Diagnosed A-Fib with controlled Ventricular Response Rate. Requesting Physician: Estephania Durant MD Attending Physician: Trenton Millard MD History of Present Illness Mrs. Pena is a 66 year old female with a history of Obesity, Prior DVT/PE 2016 (failed standard anticoagulation, converted to Lovenox), Autoimmune Hemolytic Anemia, Pulmonary Hypertension, Mild Concentric LVH, Mild MR, Mild TR, Moderately Dilated RV with Normal RV Systolic Function,Moderate Left Atrial Dilation, Mild to Moderate Right Atrial Dilation, Hyponatremia, and Snoring (without a diagnosis of sleep apnea) who was admitted on 12/18/21 after presenting with Generalized Weakness, Malaise, Fever, Cough, SOB, and Poor Appetite over the preceding several weeks. On admission, she was noted to be Hypokalemic, Hyponatremic, and Hypoxic with a RLL infiltrate on her CXR. Presentation consistent with an Acute RLL Pneumonia. Patient treated with IVF, supplemental O2, IV Rocephin 2 g daily, and IV Azith romycin. She was also noted to be in Rate Controlled Atrial Fibrillation with HR's in the 60's and 70's. Her potassium was supplemented and she received 1 dose of IV Lasix 40 mg. She was also started on Lovenox, but this has been discontinued probably secondary to thrombocytopenia (platelet count has ranged between 97663 and 33750/uL). Her BNP is mildly elevated at 147 pg/mL and despite her single dose of IV Lasix she has a positive fluid balance of +1730 mL since being admitted -- with elevated liver enzymes she likely has some passive hepatic congestion. CXR today is consistent with RLL infiltrate and mild pulmonary vascular congestion. One hs Troponin I was drawn and was minimally elevated at 14.5 pg/mL. Patient appears to be in a hypothyroid state which may have an impact on her HR as it's corrected. At the present time she feels much better than she did at the time of admission. Her SOB is improved and her cough is less prominent. She denies any further fevers and her weakness, malaise have improved. She does not lie flat to sleep due to difficulty catching her breath during this illness. Patient denies any exertional chest pain, heaviness, tightness, pressure, or discomfort. She had a brief episode of chest discomfort at rest a few weeks ago but it was very atypical. She denies any exertional neck, jaw, back, or arm discomfort. She denies any palpitations or fast heart rates. She denies any syncope or near syncope. No symptoms suggestive of stroke or mini-stroke. ECHOCARDIOGRAM 12/18/21: -- Normal LV size and systolic function. -- LVEF 55% to 60% without wall motion abnormalities. -- Mild concentric LVH. -- Moderately dilated RV with normal RV systolic function. -- RVSP is 30 to 40 mmHg. -- Moderate left atrial dilation. -- Mild to moderate right atrial dilation. -- Mild MR. -- Mild TR. 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 Allergies Allergy/AdvReac Type Severity Reaction Status Date / Time No Known Allergies Allergy Unverified 12/18/21 07:21 Home Medications Medication Instructions Recorded Confirmed Type cholecalciferol (vitamin D3) 50 50 mcg PO DAILY 12/18/21 12/18/21 History mcg (2,000 unit) capsule ergocalciferol (vitamin D2) 1,250 1,250 mcg PO WK 12/18/21 12/18/21 History mcg (50,000 unit) capsule Patient History Medical History (Updated 12/19/21 @ 10:05 by Alan Bhatti PA-C) History of pulmonary embolism Surgical History (Updated 12/19/21 @ 10:11 by Alan Bhatti PA-C) S/P cholecystectomy Social History Smoking Status: Never smoker Hx Alcohol Use: No Hx Substance Use: No Preferred Language: Yakut Communication Ability: Effective 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 GENERAL: Patient in no acute distress. HEENT: Head is atraumatic, normocephalic. EOM's intact. Facies symmetric. No perioral cyanosis. NECK: No JVD. JVP is just above the clavicle sitting upright. Carotid upst rokes are + 2 bilaterally without obvious bruits. CHEST/LUNGS: Crackles are present in the right lower lung field, and also present in the left base. No wheezes appreciated. CVS: S1 and S2 are irregularly irregular and distant at 72 bpm. No obvious murmurs, gallops, or rubs. PMI is nonpalpable. No lifts, heaves, or thrills. No abdominal aortic or renal bruits. ABDOMINAL EXAM: Bowel sounds are present. No masses, organomegaly, or tenderness. EXTREMITIES: No clubbing or cyanosis. +2 pitting edema to the mid-tibia bilaterally. Intact radial pulses bilaterally. NEUROLOGIC EXAM: Patient is awake, alert, and oriented. Pleasant and cooperative. Answers questions appropriately. Speech is clear. Gait pattern was not assessed. Results & Data ([facility]) Vital Signs (Past 12 Hours) Vital Signs Temp Pulse Pulse Resp BP Pulse Ox 12/19/21 06:40 37.0 C 66 18 114/71 91 12/19/21 03:43 36.8 C 67 18 125/76 90 12/18/21 23:24 66 12/18/21 23:07 36.8 C 66 18 119/69 94 Laboratory Results Laboratory Results - last 24 hr 12/18/21 12/18/21 12/18/21 01:45 03:54 03:54 WBC RBC Hgb Hct MCV MCH MCHC RDW Std Deviation RDW Coeff of Major Plt Count MPV Immature Gran % (Auto) Neut % (Auto) Lymph % (Auto) [place] % (Auto) Eos % (Auto) Baso % (Auto) Neut # (Auto) Lymph # (Auto) [place] # (Auto) Eos # (Auto) Baso # (Auto) Immature Gran # (Auto) Platelet Estimate Peripher Smr Path Cons PT INR Sodium Potassium Chloride Carbon Dioxide Anion Gap BUN Creatinine Est Cr Clr Drug Dosing Est GFR ( Amer) Est GFR (Non-Af Amer) BUN/Creatinine Ratio Glucose Osmolality 269 L Calcium Magnesium TSH Free T4 Urine Osmolality Hepatitis A IgM Ab NON-REACTIVE Hep Bs Antigen NON-REACTIVE Hep Bs Ag Confirmation TNP Hep B Core IgM Ab NON-REACTIVE Hepatitis C Ab (EIA) NON-REACTIVE Hep C Ab Signal/Cutoff 0.01 12/18/21 12/18/21 12/19/21 03:54 04:09 07:02 WBC 3.22 L RBC 4.14 L Hgb 12.8 Hct 37.5 MCV 90.6 MCH 30.9 MCHC 34.1 RDW Std Deviation 44.4 RDW Coeff of Major 13.3 Plt Count 70 L MPV 13.5 H Immature Gran % (Auto) 0.0 Neut % (Auto) 68.0 Lymph % (Auto) 19.9 [place] % (Auto) 7.1 Eos % (Auto) 4.7 Baso % (Auto) 0.3 Neut # (Auto) 2.19 Lymph # (Auto) 0.64 L [place] # (Auto) 0.23 Eos # (Auto) 0.15 Baso # (Auto) 0.01 Immature Gran # (Auto) 0.00 Platelet Estimate Decreased L Peripher Smr Path Cons PT INR Sodium Potassium Chloride Carbon Dioxide Anion Gap BUN Creatinine Est Cr Clr Drug Dosing Est GFR ( Amer) Est GFR (Non-Af Amer) BUN/Creatinine Ratio Glucose Osmolality Calcium Magnesium TSH 4.548 H Free T4 0.96 Urine Osmolality 261 L Hepatitis A IgM Ab Hep Bs Antigen Hep Bs Ag Confirmation Hep B Core IgM Ab Hepatitis C Ab (EIA) Hep C Ab Signal/Cutoff 12/19/21 12/19/21 07:02 07:02 WBC RBC Hgb Hct MCV MCH MCHC RDW Std Deviation RDW Coeff of Major Plt Count MPV Immature Gran % (Auto) Neut % (Auto) Lymph % (Auto) [place] % (Auto) Eos % (Auto) Baso % (Auto) Neut # (Auto) Lymph # (Auto) [place] # (Auto) Eos # (Auto) Baso # (Auto) Immature Gran # (Auto) Platelet Estimate Peripher Smr Path Cons PT 11.7 INR 1.1 Sodium 134 L Potassium 3.7 Chloride 99 Carbon Dioxide 30 Anion Gap 5 BUN 10 Creatinine 0.60 Est Cr Clr Drug Dosing 132.7 Est GFR ( Amer) 108.5 Est GFR (Non-Af Amer) 93.7 BUN/Creatinine Ratio 16.7 Glucose 136 H Osmolality Calcium 8.1 L Magnesium 1.9 TSH Free T4 Urine Osmolality Hepatitis A IgM Ab Hep Bs Antigen Hep Bs Ag Confirmation Hep B Core IgM Ab Hepatitis C Ab (EIA) Hep C Ab Signal/Cutoff Diagnostic Findings CXR 12/19/21: The cardiac silhouette is enlarged. Mild right hemidiaphragmatic elevation. Pulmonary vascular congestion with interstitial coarsening. Persistent right lung base airspace opacities which appear similar to mildly improved. Bones appear grossly intact. IMPRESSION: 1. Cardiomegaly with pulmonary vascular congestion. 2. Right lung base airspace opacities suspicious for pneumonia appear similar to mildly improved from yesterday's exam. LIVER ULTRASOUND 12/18/21: 1. Prior cholecystectomy. 2. Normal liver. 3. Small right pleural effusion. Medications Administered Medications cholecalciferol (vitamin D3) 50 mcg (2,000 unit) capsule 50 mcg PO DAILY 12/18/21 [History Confirmed 12/18/21] ergocalciferol (vitamin D2) 1,250 mcg (50,000 unit) capsule 1,250 mcg PO WK 12/18/21 [History Confirmed 12/18/21] Home Medications Acetaminophen (Acetaminophen 325 Mg Tab) 650 mg PO Q6H PRN PRN Reason: Pain or Fever Stop: 01/17/22 04:47 Last Admin: 12/18/21 18:03 Dose: 650 mg Documented by: Guaifenesin (Guaifenesin 600 Mg Tabcr) 1,200 mg PO Q12 [facility] Stop: 01/17/22 08:59 Last Admin: 12/18/21 22:39 Dose: 1,200 mg Documented by: Ceftriaxone Sodium 2,000 mg/ (Dextrose) 70 mls @ 100 mls/hr IV Q24H [facility]; Protocol Stop: 12/26/21 05:59 Last Infusion: 12/19/21 06:25 Dose: Infused Documented by: Azithromycin 500 mg/ Dextrose 255 mls @ 125 mls/hr IV Q24H [facility] Stop: 12/26/21 06:59 Last Infusion: 12/19/21 08:30 Dose: Infused Documented by: PG Care Time/CCT Total # of Minutes Spent Total Time Spent with Patient: Total time spent is greater than 50% in coordination of care (as documented) at patient's floor/unit and/or counseling patient:42 Coding Level of Care Code 95191 Initial Inpt Care Lvl 3 Diagnoses Atrial fibrillation with controlled ventricular rate I48.91 Pulmonary hypertension I27.20 Hypervolemia E87.70 History of pulmonary embolism Z86.711 Thrombocytopenia D69.6 Pneumonia J18.9 Laterality: right Lung location: lower lobe of lung Pneumonia type: due to unspecified organism Time Spent (min) 67 (1) Pneumonia Laterality: right Lung location: lower lobe of lung Pneumonia type: due to unspecified organism Qualified Code(s): J18.9 - Pneumonia, unspecified organism
[2021-12-19] MEDS ORDERED: POTASSIUM CHLORIDE CRTAB 20 MEQ TABCR PO ONE (10:20)
[2021-12-19] MEDS: guaiFENesin 600 MG TABCR PO SCH ×2 (10:39→20:02)
[2021-12-19 13:56] LABS: Adenovirus F 40/41 PCR Not Detected (NotDetected); Astrovirus PCR Not Detected (NotDetected); Campylobacter PCR Not Detected (NotDetected); Clostridium diff Toxin A/B PCR Not Detected (NotDetected); Cryptosporidium PCR Not Detected (NotDetected); Cyclospora cayetanensis PCR Not Detected (NotDetected); Entamoeba histolytica PCR Not Detected (NotDetected); Enteroaggregative E.coli(EAEC) Not Detected (NotDetected); Enteropathogenic E.coli (EPEC) Not Detected (NotDetected); Giardia lamblia PCR Not Detected (NotDetected); Norovirus GI/GII PCR Not Detected (NotDetected); Plesiomonas shigelloides PCR Not Detected (NotDetected); Rotavirus A PCR Not Detected (NotDetected); Salmonella PCR Not Detected (NotDetected); Sapovirus PCR Not Detected (NotDetected); Shiga-like Toxin E.coli (STEC) Not Detected (NotDetected); Shigella/Enteroinvasive E.coli Not Detected (NotDetected); Vibrio cholerae PCR Not Detected (NotDetected); Vibrio species PCR Not Detected (NotDetected); Yersinia enterocolitica PCR Not Detected (NotDetected)
[2021-12-19 14:19] LABS: Enterotoxigenic E.coli (ETEC) DETECTED (NotDetected)
[2021-12-19] MEDS: RIVAROXABAN 20 MG TAB PO SCH (16:52)
[2021-12-20] MEDS: cefTRIAXone SODIUM 2,000 MG in DEXTROSE 5% 50 ML IV SCH (05:35)
[2021-12-20] MEDS: AZITHROMYCIN 500 MG in DEXTROSE 5% 250 ML IV SCH (06:20)
[2021-12-20] MEDS: guaiFENesin 600 MG TABCR PO SCH ×2 (08:13→20:08)
[2021-12-20 08:26] LABS: Albumin Globulin Ratio 1.1 (0.9-2); Albumin Level 3.3 gm/dl (3.4-5.0); BUN Creatinine Ratio 19.7 (10-20); Bilirubin,Total 0.4 mg/dl (0.2-1.0); Calcium 8.4 mg/dl (8.5-10.1); Creatinine Clr Calc Pharmacy 120.2 ml/min; Est GFR (African American) 105.2 ml/min; Est GFR (Non-African American) 90.8 ml/min; Globulin 3.1 gm/dl (2.5-4.0); Potassium 3.9 mmol/L (3.5-5.1); Total Protein 6.4 gm/dl (6.0-8.3)
--- NOTE | 2021-12-20 08:43 | XRay Report ---
XR chest 1V portable CLINICAL HISTORY: f/u CHF COMPARISON STUDY: Chest radiograph December 19, 2021. FINDINGS: Elevation of the right hemidiaphragm is unchanged. No pneumothorax or pleural effusion is n oted. Cardiomegaly is again noted. Right infrahilar opacity is again noted. Pulmonary edema has sligh tly improved. IMPRESSION: Mild improvement in pulmonary edema and the right infrahilar opacity since chest radiogra ph of December 18, 2021. Continued radiographic follow-up to ensure resolution of the right infrahilar opa city is recommended. ACT 112: Negative or not required by law. Electronically signed by: Mani Sampson M.D. 12/20/2021 8:42 AM
[2021-12-20 08:45] LABS: Basophils # (auto) 0.01 K/uL (0-0.2); Basophils % (auto) 0.3 %; Eosinophils # (auto) 0.26 K/uL (0-0.5); Hematocrit (blood only) 40.1 % (37-47); Hemoglobin 13.2 g/dL (12.0-16.0); Lymphocytes # (auto) 0.71 K/uL (1.2-3.4); Lymphocytes % (auto) 21.8 %; Mean Corpuscular Hemoglobin 30.1 pg (25-34); Mean Corpuscular Hgb Conc 32.9 g/dL (32-36); Mean Corpuscular Volume 91.6 fL (80-100); Mean Platelet Volume 12.9 fL (7.4-10.4); Monocytes # (auto) 0.22 K/uL (0.11-0.59); Monocytes % (auto) 6.7 %; Neutrophils # (auto) 2.06 K/uL (1.4-6.5); Neutrophils % (auto) 63.2 %; Platelet Count 115 K/uL (130-400); RBC Morphology Unremarkable; RDW Coefficient of Variation 13.4 % (11.5-14.5); RDW Standard Deviation 44.9 fL (36.4-46.3); Red Blood Count 4.38 M/uL (4.2-5.4); White Blood Count 3.26 K/uL (4.8-10.8)
[2021-12-20] MEDS ORDERED: FUROSEMIDE 40 MG/4 ML VIAL IV ONE (11:58)
--- NOTE | 2021-12-20 16:06 | Hospitalist Progress Note ---
Date of Service December 20, 2021 Assessment & Plan (1) Hypoxia: Plan: Saray Pena is a 66yo female with PMHx significant for h/o VTE (in 2016, not on Lovenox for several years) who presented to [facility] ED on 12/18 for shortness of breath, cough, diarrhea and generalized weakness. Dry Cough; RLL Airspace Opacity on CXR; Hypoxia Weakness x several weeks with cough/SOB, RLL crackles on exam, and RLL airspace opacity per CXR. No sepsis. - lactate, procal normal on admit and normal on repeat today, CRP slightly elevated at 16.05 - MRSA nares negative - ordered urine legionella, given comorbid diarrhea and hyponatremia, pending - legionella unlikely given lack of traditional exposures from infected water source for legionella and diarrhea caused by ETEC - Had 2 days of CTX 1g IV and Azithromycin 500mg IV due to suspicion for PNA, discontinued today due to likely cardiac/fluid overload etiology to SOB - no growth on blood cultures to date - Mucinex 1200mg PO BID - likely etiology is right sided HFpEF - follow symptomatic progress with diuresis - repeat chest xray today showed mild improvement in pulmonary edema and the right infrahilar opacity - 80mg IV lasix BID ordered today, Cr 0.66, BUN 13 - supplemental O2 via NC as necessary to maintain SpO2 90% - wean as tolerated. Currently able to tolerate being on room air and uses O2 after exertion due to walking to the bathroom - consider walking trial tomorrow for O2 requirement - ECHO notable for EF 55-60% new mild mitral and tricuspid regurg and mild pulmonary HTN compared to echo in 2016. LV normal, RV moderately dilated with RV systolic pressure of 30-40mmHg - Cardiology consult: recommend group home anticoagulation with xarelto 20mg PO, afib is well controlled so no further workup needed Transaminitis - AST 52->63, ALT 56->90 today - hepatitis panel negative - liver ultrasound 12/18: 1. Prior cholecystectomy, 2. Normal liver, 3. Small right pleural effusion. 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 CHADS-VASc score of 2. CHADS-VASc score of 4 (previous VTE). - Admitted to med/tele, still in afib today - TSH 4.5, T4 0.96, not likely contributing to afib - fecal occult blood negative, started Xarelto 20mg PO daily for afib anticoagulation on 12/19 Hyponatremia Na 134 -> 135 today. Suspect hypotonic hypovolemic hyponatremia due to diarrhea as well as decreased fluid intake. - ordered urine/serum osmolality and urinary sodium - given 1L NSS bolus in ED, no IV fluids currently other than abx Diarrhea - Patient describes 3-4 days of uncontrollable diarrhea pre-admission that was black in color and foul smelling. No red blood. - Fecal occult blood test negative. GI PCR panel + for ETEC. - for e. coli shiga toxin - Hemodynamically stable with normal hgb, no abdominal pain. Formed stool today. - Hgb 12.8 -> 13.2, Hct 37.5 -> 40.1 Thrombocytopenia Plts 70 -> 115 today. Unclear etiology at this time, possibly viral infection. No s/s active bleeding. - peripheral smear showed thrombocytopenia H/o VTE/PE In 2015. Was on anti-coagulation but stopped (reportedly per PCP) several years ago. FEN/GI: low salt diet DVT Prophylaxis: xarelto 20mg PO Code Status: full code Disposition: med/tele (2) Atrial fibrillation: (3) Thrombocytopenia: (4) Hyponatremia: (5) Diarrhea: (6) History of pulmonary embolism: Admission and Anticipated Discharge Date Admission Date: December 18, 2021 Supervising Physician Co-Signing Physician Notes Medical Student Supervision Note: I was personally present during medical student patient encounter and independently interviewed and examined the patient and verified the [place] history and physical, reviewed labs and image studies, discussed the case with Jazmin James and agree with the findings and care plan. 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 Noted to be hypoxic and have CXR infiltrate and low platelet count. started on IV abx in ED. Also found to be in A fib - rate controlled. Acute hypoxic resp failure sec to fluid overload O2 support as needed. Acute on chronic HFpEF positive fluid balance increase lasix to 80mgs bid. follow bmp. Diarrhea from Enterotoxic E coli symptoms improved. Concern of pneumonia. Less likely d/c abx. A fib - RC Anticoagulation started. Low platelet - likely sec to acute illness. count improving. follow Hyponatremia sec to hypervolemia. follow. Transaminitis ?sec to right side fluid congestion. aggressive diuresis Morbid obesity - will benefit from formal sleep eval considering echo finding Subjective Patient was feeling much better today with no SOB unless walking. Some cough remaining. No chest pain, palpitations, diarrhea, abdominal pain, or dysuria. She is able to be off the oxygen while sitting still in bed, but has to use the oxygen after exerting herself when she walks to the bathroom. Had a formed BM this morning. Review of Systems Constitutional: no fever or chills Respiratory: no SOB at rest, some SOB when walking. Some dry cough Cardiovascular: Additional Comments: no chest pain or palpitations Gastrointestinal: no abd pain or diarrhea Genitourinary: no dysuria Physical Exam Constitutional: sitting comfortable at edge of bed, not on O2 Respiratory: normal respiratory effort, slight crackles in lower right lobe Cardiovascular: irregularly irregular, no murmur appreciated, pitting edema to mid ang bilaterally Gastrointestinal (Abdomen): active bowel sounds, no pain to palpation Neurologic: A&Ox3 Results & Data Results & Data ([facility]) Vital Signs (Past 12 Hours) Vital Signs Temp Pulse Pulse Resp BP Pulse Ox 12/20/21 15:21 72 12/20/21 11:25 36.9 C 64 19 135/75 90 12/20/21 07:58 73 12/20/21 07:41 36.8 C 70 18 123/67 90
[2021-12-20] MEDS: RIVAROXABAN 20 MG TAB PO SCH (16:17)
--- NOTE | 2021-12-20 16:42 | Cardiology Progress Note ---
Date of Service December 20, 2021 Assessment & Plan (1) Atrial fibrillation with controlled ventricular rate: Plan: 1. Atrial fibrillation: Her atrial fibrillation is well controlled, I would not recommend any further evaluation of this. Admission and Anticipated Discharge Date Admission Date: December 18, 2021 Subjective She is feeling well today from the cardiovascular standpoint and has no awareness of her cardiac rhythm. Physical Exam Physical Exam: Constitutional: Alert, cooperative and in no distress. She is laying supine in bed. HEENT: Unremarkable Neck: No jugular venous distention, carotid pulses are irregular but otherwise normal and equal bilaterally without bruits. Pulmonary: Basilar crackles on auscultation bilaterally. Cardiac: Irregular rhythm with no murmur, gallop or rub. Abdomen: Soft, nontender with normal bowel sounds. Extremities: No edema. Neurologic: No focal findings. Skin: No rash, ecchymoses or petechiae. Results & Data ([facility]) Vital Signs (Past 12 Hours) Vital Signs Temp Pulse Pulse Resp BP Pulse Ox 12/20/21 15:21 72 12/20/21 11:25 36.9 C 64 19 135/75 90 12/20/21 07:58 73 12/20/21 07:41 36.8 C 70 18 123/67 90 Laboratory Results Cardiac Enzymes 12/20/21 Range/Units 06:48 AST 63 H (13-39) U/L CBC 12/20/21 Range/Units 06:48 WBC 3.26 L (4.8-10.8) K/uL RBC 4.38 (4.2-5.4) M/uL Hgb 13.2 (12.0-16.0) g/dL Hct 40.1 (37-47) % Plt Count 115 L D (130-400) K/uL Neut # (Auto) 2.06 (1.4-6.5) K/uL Lymph # (Auto) 0.71 L (1.2-3.4) K/uL [place] # (Auto) 0.22 (0.11-0.59) K/uL Eos # (Auto) 0.26 (0-0.5) K/uL Baso # (Auto) 0.01 (0-0.2) K/uL Comprehensive Metabolic Panel 12/20/21 Range/Units 06:48 Sodium 135 L (136-145) mmol/L Potassium 3.9 (3.5-5.1) mmol/L Chloride 98 (98-107) mmol/L Carbon Dioxide 32 (21-32) mmol/L BUN 13 (6-23) mg/dl Creatinine 0.66 (0.6-1.2) mg/dl Glucose 131 H (70-99(Fasting)) mg/dl Calcium 8.4 L (8.5-10.1) mg/dl AST 63 H (13-39) U/L ALT 90 H (7-52) U/L Alkaline Phosphatase 69 (34-104) U/L Total Protein 6.4 (6.0-8.3) gm/dl Albumin 3.3 L (3.4-5.0) gm/dl Intake and Output 12/20/21 12/20/21 12/20/21 06:59 14:59 22:59 Intake Total 520 / 1755 600 / 600 Balance 520 / 1755 600 / 600 Intake: IV 70 / 325 255 / 255 Azithromycin 500 mg In Dextrose 255 / 255 5% 250 ml @ 125 mls/hr IV Q24H [facility] Rx#:[id number] cefTRIAXone SODIUM 2,000 mg In 70 / 70 Dextrose 5% 50 ml @ 100 mls/hr IV Q24H [facility] Rx#:[id number] Oral 450 / 1430 345 / 345 Other: Weight 147.9 kg Weight Measurement Method Standing Scale Diagnostic Findings Telemetry: Atrial fibrillation with a heart rate ranging between 60 and 80 bpm. PG Care Time/CCT Total # of Minutes Spent Total Time Spent with Patient: Total time spent is greater than 50% in coordination of care (as documented) at patient's floor/unit and/or counseling patient: Coding Level of Care Code 98595 Subseq Hosp Care Lvl 2 Diagnoses Atrial fibrillation with controlled ventricular rate I48.91
[2021-12-20] MEDS: FUROSEMIDE 40 MG/4 ML VIAL IV SCH (20:08)
--- NOTE | 2021-12-21 08:03 | XRay Report ---
XR chest 1V portable HISTORY: 66 years-old Female chf follow-up study in a patient with congestive heart failure COMPARISON: Chest radiograph 12/20/2021, CTA chest 02/15/2016 TECHNIQUE: Portable AP view of the chest FINDINGS: Cardiac silhouette is enlarged. Pulmonary vascular congestion with mild persistent interstitial coars ening. No pneumothorax. Slight improvement of the right infrahilar opacity. No large pleural effusion . Mild right hemidiaphragmatic elevation. Degenerative changes of the shoulders and spine. IMPRESSION: 1. Cardiomegaly with persistent mild pulmonary edema. 2. Slight improvement of the right infrahilar opacity. ACT 112: Negative or not required by law. The above report was generated using voice recognition software. It may contain grammatical, syntax o r spelling errors. Electronically signed by: Amor Caldwell M.D. 12/21/2021 8:01 AM
[2021-12-21 08:27] LABS: Hematocrit (blood only) 42.5 % (37-47); Hemoglobin 13.8 g/dL (12.0-16.0); Mean Corpuscular Hemoglobin 29.4 pg (25-34); Mean Corpuscular Hgb Conc 32.5 g/dL (32-36); Mean Corpuscular Volume 90.4 fL (80-100); Mean Platelet Volume 12.4 fL (7.4-10.4); Platelet Count 142 K/uL (130-400); RDW Coefficient of Variation 13.4 % (11.5-14.5); RDW Standard Deviation 44.3 fL (36.4-46.3); White Blood Count 3.29 K/uL (4.8-10.8)
[2021-12-21] MEDS: guaiFENesin 600 MG TABCR PO SCH ×2 (08:35→20:16)
[2021-12-21] MEDS: FUROSEMIDE 40 MG/4 ML VIAL IV SCH ×2 (08:40→20:16)
[2021-12-21 08:57] LABS: Calcium 8.4 mg/dl (8.5-10.1); Creatinine Clr Calc Pharmacy 133.3 ml/min; Est GFR (African American) 109.2 ml/min; Est GFR (Non-African American) 94.2 ml/min; Magnesium 1.9 mg/dl (1.7-2.4); Potassium 3.6 mmol/L (3.5-5.1)
--- NOTE | 2021-12-21 13:51 | Hospitalist Progress Note ---
Date of Service December 21, 2021 Assessment & Plan (1) Hypoxia: Plan: Saray Pena is a 66yo female with PMHx significant for h/o VTE (in 2016, not on Lovenox for several years) who presented to [facility] ED on 12/18 for shortness of breath, cough, diarrhea and generalized weakness. Dry Cough; RLL Airspace Opacity on CXR; Hypoxia Weakness x several weeks with cough/SOB, RLL crackles on exam, and RLL airspace opacity per CXR. No sepsis. - lactate, procal normal on admit and normal on repeat 12/20, CRP slightly elevated at 16.05 - MRSA nares negative, urine legionella Ag negative - Had 2 days of CTX 1g IV and Azithromycin 500mg IV due to suspicion for PNA, discontinued on 11/19 due to likely cardiac/fluid overload etiology to SOB - no growth on blood cultures to date - Mucinex 1200mg PO BID - likely etiology is right sided HFpEF - follow symptomatic progress with diuresis - while fluid balance in chart is net positive, patient noted today that she had been urinating and flushing without collecting urine - Clinically patient is less fluid overloaded and weight decreased from 148.7kg on 12/19 to 145.8 12/21 - repeat chest xray today showed mild improvement in pulmonary edema and the right infrahilar opacity - Continue 80mg IV lasix BID, Cr 0.66-> 0.59, BUN 13 - no oxygen use since yesterday, patient notes that during ambulation to bathroom without oxygen today, O2 saturation at 96% - ECHO notable for EF 55-60% new mild mitral and tricuspid regurg and mild pulmonary HTN compared to echo in 2016. LV normal, RV moderately dilated with RV systolic pressure of 30-40mmHg - Cardiology consult: recommend longterm anticoagulation with xarelto 20mg PO, afib is well controlled so no further workup needed Transaminitis - AST 52->63, ALT 56->90 on 12/20 - hepatitis panel negative - liver ultrasound 12/18: 1. Prior cholecystectomy, 2. Normal liver, 3. Small right pleural effusion. 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 CHADS-VASc score of 4 (previous VTE). - Admitted to med/tele, still in afib today rate controlled at 60-70bpm - TSH 4.5, T4 0.96, not likely contributing to afib - fecal occult blood negative, started Xarelto 20mg PO daily for afib anticoagulation on 12/19 Hyponatremia Na 136 today. Suspect hypotonic hypovolemic hyponatremia due to diarrhea as well as decreased fluid intake. - At this time resolved. Diarrhea - Patient describes 3-4 days of uncontrollable diarrhea pre-admission that was black in color and foul smelling. No red blood. - Fecal occult blood test negative. GI PCR panel + for ETEC. - for e. coli shiga toxin - Hemodynamically stable with normal hgb, no abdominal pain. Formed stool today. Thrombocytopenia Plts 115 -> 142 today. Unclear etiology at this time, possibly viral infection. No s/s active bleeding. - peripheral smear showed thrombocytopenia H/o VTE/PE In 2015. Was on anti-coagulation but stopped (reportedly per PCP) several years ago. FEN/GI: low salt diet DVT Prophylaxis: xarelto 20mg PO Code Status: full code Disposition: plan for discharge home tomorrow AM (2) Atrial fibrillation: (3) Thrombocytopenia: (4) Hyponatremia: (5) Diarrhea: (6) History of pulmonary embolism: Admission and Anticipated Discharge Date Admission Date: December 18, 2021 Supervising Physician Co-Signing Physician Notes Medical Student Supervision Note: I was personally present during medical student patient encounter and independently interviewed and examined the patient and verified the paniagua history and physical, reviewed labs and image studies, discussed the case with Jazmin James and agree with the findings and care plan. 66 y/o protestant F here with shortness of breath and feeling feverish. Noted to be hypoxic and have CXR infiltrate and low platelet count. started on IV abx in ED. Also found to be in A fib - rate controlled. Acute hypoxic resp failure sec to fluid overload - resolved O2 support as needed. Acute on chronic HFpEF 10 lb weight loss renal function stable. continue with lasix to 80mgs bid. follow bmp. Diarrhea from Enterotoxic E coli symptoms improved. Concern of pneumonia on admission. Less likely d/c abx. A fib - RC - New diagnosis Anticoagulation started. Low platelet - likely sec to acute illness. count improved Hyponatremia sec to hypervolemia. follow. Transaminitis ?sec to right side fluid congestion. aggressive diuresis Morbid obesity - will benefit from formal sleep eval considering echo finding Subjective This morning the patient was feeling good, no SOB at rest or on exertion. She has not needed oxygen since yesterday and is not feeling light headed when walking. She still endorses a cough but feels like she is just clearing her throat. Review of Systems Constitutional: no fever of chills Respiratory: no SOB, slight cough Cardiovascular: Additional Comments: no palpitations or chest pain Gastrointestinal: no abdominal pain, no diarrhea Genitourinary: no dysuria Physical Exam Constitutional: laying comfortably in bed, no acute distress Respiratory: normal respiratory effort, clear to auscultation bilaterally Cardiovascular: irregularly irregular, no murmurs appreciated Gastrointestinal (Abdomen): no pain to palpation Neurologic: visual rocha intact to confrontation, A&Ox3 Results & Data Results & Data ([facility]) Vital Signs (Past 12 Hours) Vital Signs Temp Pulse Pulse Resp BP Pulse Ox 12/21/21 11:51 36.3 C L 71 20 126/78 92 12/21/21 08:23 36.7 C 69 20 117/73 90 12/21/21 08:01 63 12/21/21 03:24 36.5 C 66 20 127/77 91
[2021-12-21] MEDS: RIVAROXABAN 20 MG TAB PO SCH (17:02)
[2021-12-22 05:51] LABS: Hematocrit (blood only) 41.9 % (37-47); Hemoglobin 14.4 g/dL (12.0-16.0); Mean Corpuscular Hemoglobin 31.2 pg (25-34); Mean Corpuscular Hgb Conc 34.4 g/dL (32-36); Mean Corpuscular Volume 90.7 fL (80-100); Mean Platelet Volume 11.4 fL (7.4-10.4); Platelet Count 166 K/uL (130-400); RDW Coefficient of Variation 13.6 % (11.5-14.5); RDW Standard Deviation 45.7 fL (36.4-46.3); Red Blood Count 4.62 M/uL (4.2-5.4); White Blood Count 3.93 K/uL (4.8-10.8)
[2021-12-22 06:13] LABS: BUN Creatinine Ratio 19.7 (10-20); Calcium 8.6 mg/dl (8.5-10.1); Creatinine Clr Calc Pharmacy 110.8 ml/min; Est GFR (African American) 101.4 ml/min; Est GFR (Non-African American) 87.5 ml/min; Potassium 3.5 mmol/L (3.5-5.1)
[2021-12-22] MEDS: FUROSEMIDE 40 MG/4 ML VIAL IV SCH (08:15)
[2021-12-22] MEDS: guaiFENesin 600 MG TABCR PO SCH (08:15)
--- NOTE | 2021-12-22 09:50 | Discharge Summary ---
Date of Service December 22, 2021 Admission HPI Per Admitting Provider Saray Pena is a 66yo female with PMHx significant for h/o VTE (in 2016, not on Lovenox for several years) who presented to [facility] ED on 12/18 for generalized weakness and malaise x several weeks in addition to cough, shortness of breath and significantly decreased appetite for ~1 week. Patient has had [id number] PO intake for several days. Also patient reports watery diarrhea (non-bloody), 2-3 episodes per day, for the last several weeks. Patient was reportedly seen in a clinic yesterday and had SpO2 of 91% and had tested nevarez-negative for viral infections via [employer] testing. Patient denies fever/chills, chest pain, N/V, abdominal pain In the ED the patient was hypoxic to high 80s and required 2L/min via NC to maintain SpO2 92%. Labs significant for plts 60 (no previous) and lymphopenia 0.61. Na 128, Cl 93. AST 56. hsTroponin negative. BNP 147. PT 12.7/INR 12.7. COVID-19 negative. CXR showing RLL opacity suggestive of pneumonia. In the ED patient was given CTX 1g IV and Azithromycin 500mg IV. Was also given Fentanyl 25mcg IV x1. Blood cx were drawn before abx administered. Admission Exam Per Admitting Provider General: A&Ox3. NAD. Cooperative. HEENT: Atraumatic, normocephalic. Pulm: Right mid- and basilar crackles. Symmetrical chest rise. No increase work of breathing. No respiratory distress. Cardiac: irregularly irregular rhythm, regular rate, -mrg. Radial pulses intact and symmetrical. No LE edema. Abdominal: soft, non-tender, non-distended, BS x 4 Skin: warm, dry, no rash Principal Diagnosis Congestive heart failure Discharge Exam Constitutional WD/WN, vitals as above + morbidly obese; no acute distress Eyes + anicteric sclerae ENMT external ear and nose normal, oropharynx normal Neck normal visual inspection and trachea midline Respiratory normal respiratory effort; no respiratory distress and no labored breathing Cardiovascular Rate/Rhythm: regular rate and + irregularly irregular Heart Sounds: normal S1 and normal S2; no murmur Skin no rashes, warm and dry Neurologic moves all extremities Psychiatric A+Ox3, euthymic affect Discharge Data Allergies Allergy/AdvReac Type Severity Reaction Status Date / Time No Known Allergies Allergy Unverified 12/18/21 07:21 Consultations 12/18/21 03:11 ED Decision to Admit Stat 12/18/21 15:13 Consult Cardiology Routine Ordered Studies 12/18/21 11:35 US liver Routine Hospital Course (1) Hypoxia: Saray Pena is a 66yo female with PMHx significant for h/o VTE (in 2016, off Lovenox for several years) who presented to [facility] ED on 12/18 for shortness of breath, cough, diarrhea and generalized weakness. - etiology felt to be due to pulmonary vascular congestion 2/2 new onset CHF, and possible concurrent viral PNA - CXR on admission showed pulmonary vascular congestion - BNP elevated to 147 - ECHO notable for EF 55-60% new mild mitral and tricuspid regurg and mild pulmonary HTN compared to echo in 2016. LV normal, RV moderately dilated with RV systolic pressure of 30-40mmHg - Patient was treated with Lasix, 80mg IV BID during inpatient stay with good diereses (weight dropped from 148.7kg on admission to 144.2kg on day of discharge). Despite hefty lasix dosing, creatinine remained normal. - Recommend patient continue Lasix 80mg PO BID as outpatient with planned BMP in 3 days - Recommend she have an outpatient sleep study to assess for MATY given elevated RV pressures noted on echo - Recommend she follow with [facility] as outpatient in [place] office. - As for possible concurrent viral PNA, CXR on admission did show a RLL airspace opacity - WBC, lactate and procal were not elevated. Urine Legionella Ag negative. - blood cultures negative through 48 hours. - empirically treated with 3 days of IV abx; discontinued by discharge (2) Congestive heart failure: - new onset HFpEF - continue Lasix 180mg PO BID - repeat BMP in 3 days (3) Atrial fibrillation: - New diagnosis, without RVR - TSH 4.5, T4 0.96, not likely contributing to afib - Electrolytes WNL - CHADS-VASc score of 4 - started Xarelto 20mg PO daily for stroke risk reduction (4) Thrombocytopenia: - Plts 115 on admission, suspect due to acute viral gastroenteritis - normalized by day of discharge (5) Hyponatremia: - resolved with IV hydration (6) Diarrhea: - Patient describes 3-4 days of uncontrollable diarrhea pre-admission that was black in color and foul smelling - Fecal occult blood test negative. GI PCR panel + for ETEC, - for e. coli shiga toxin. Abx not indicated - resolved by discharge (7) History of pulmonary embolism: - previously on Lovenox - starting Xarelto for systemic anticoagulation given new onset Afib as above (8) Transaminitis: - LFTs initially elevated on admission --> normalized by day of discharge - hepatitis panel negative - liver ultrasound 12/18: 1. Prior cholecystectomy, 2. Normal liver - likely hepatic congestion due to right sided HFpEF Total Time Total Time Spent Total Time Spent (In Minutes): see attending attestation Discharge Plan Discharge Items Patient Disposition: Home - Self-Care Reason For Visit: PNEUMONIA, HYPOXIA Discharge Diagnosis: pneumonia Activity: Per Instructions section Non-emergency contact: Primary Care Provider Call non-emergency contact if: you have any medication questions and your symptoms worsen Follow-up/Referrals: Lan Wheeler MD [Primary Care Provider] - 12/25/21 2:00 pm Diet: Heart Healthy and Low Sodium (2gm) Ambulatory Orders: Basic Metabolic Panel (Routine) Timeframe: 3 Days Location: Determined by Patient Ordered By: Genevieve Li Attending Provider Instructions: Mrs. Pena, You were seen in [facility] for evaluation of generalized weakness, shortness of breath, and cough. Upon arrival here, you underwent extensive evaluation to determine the cause of your symptoms.You were initially treated with antibiotics for concern for possible pneumonia. However, upon further evaluation and work up, the antibiotics were stopped as the likely cause of your symptoms is heart failure. For the heart failure, you were treated with medications to diurese (get fluid off) and you had good improvement in both your swelling and shortness of breath with this treatment. Additionally, you were found to have atrial fibrillation (an irregular heart rhythm). You were seen by cardiology for both of these diagnoses. The following medications have been started and you should continue taking these: 1. Xarelto (a blood thinner) was started due to the atrial fibrillation (ie to reduce your risk of stroke from the afib). Please continue Xarelto 20mg by mouth once a day. We discussed how you are going to be more likely to bruise from small injuries - and also bleed internally. If you ever fall and hit your head while on Xarelto, you must come to the emergency department to have a cat scan of your head (to check for a brain bleed). If you ever noticed blood in your urine or stool, please notify your family doctor immediately. 2. Lasix - this is the "water pill," which helps move excess fluid off your lungs. Please take lasix 80mg twice daily. You will need to have yor blood work rechecked in 3 days (ie 12/24/21). An order for this has been placed. Additionally, you were found to have elevated blood sugar while in the hospital. While it was not severe enough to warrant the diagnosis of "diabetes," it does fall within the "pre-diabetes" range. In other words, unless you make significant changes in your diet and exercise habits, you will likely progress to having full blow diabetes. Diabetes is a very serious diagnosis, as it places you at an increased risk of heart attack, stroke, kidney problems, and blindness. We have attached material regarding dietary modifications to make to reduce your blood sugar. We also suggest your increase your physical activity - ie at least 30 minutes of cardiovascular activity on a daily basis (walking, bicycling, etc). This helps burn up excess sugar from the blood stream. It is important that you follow up with your primary care physician within 1 week. We highly recommend you have a sleep study done as an outpatient to assess for obstructive sleep apnea. Dr. Wheeler can order this for you. In the interim, if you experience any worsening symptoms including shortness of breath, confusion, lightheadedness, dizziness, chest pain, or other worrisome symptoms, please seek medical attention; if your symptoms are severe, please report to the ER immediately for evaluation. Is a pleasure for caring for you while here, we wish you all the best in your recovery. Pending Studies at Discharge: No Stand-Alone Forms: My [facility] [place], Smoking Cessation Medications and DC Order Prescriptions: New Xarelto 20 mg Tablet 20 mg PO QDD 30 Days Qty: 30 RF: 0 furosemide [Lasix] 80 mg tablet 80 mg PO BID Qty: 30 RF: 0 Continued ergocalciferol (vitamin D2) 1,250 mcg (50,000 unit) Capsule 1,250 mcg PO WK RF: 0 cholecalciferol (vitamin D3) 50 mcg (2,000 unit) Capsule 50 mcg PO DAILY RF: 0 Discharge Orders: Discharge Order (Routine); Ordered 12/22/21 Ordered By: Genevieve Almaraz/Other Patient Handouts: Prediabetes, Low-Salt Choices, 5 Steps for Eating Healthier, Coping with Heart Failure Admission Data Admit Date/Time: 12/18/21 03:48 Attending Provider: Estephania Durant Admit Provider: Alton Davis Primary Care Provider: Lan Wheeler Other Providers: Masha Garzon Anthony F. Other Interventions: Discharge Summary Assessment (RN) Last Done: 12/22/21 10:59 Supervising Physician Co-Signing Physician Notes Resident Physician Supervision Note: I independently interviewed and examined the patient and verified the paniagua history and physical, reviewed labs and image studies and agree with resident Dr. Carrillo findings and care plan. Resident Activity Tracking Resident Involvement: Resident Care Provided Care Provided: Adult Hospital Medicine
== END 2021-12-22 13:04 | disposition home or self-care (01) | DRG 291 ==
LOC: ED 00:37 → EDINP 03:48 → SUATTDRO 03:48 → EDINP 04:47 → 2N 17:37